=== PATIENT | female | born 1965 | race American Indian/Alaskan Native ===

== ENCOUNTER 2016-08-12 06:34 | Day surgery (SDC) | payer OTHER ==
[2015-08-23 10:50] VITALS: BMI 51.5
--- NOTE | 2016-08-12 08:52 | CP.SDSHP ---
Same Day Surgery H & P - History Proposed Procedure: colonoscopy Pre-Op Diagnosis: Screening for colon cancer - Previous Medical/Surgical History Cardiac: Hypertension, Other (Cardiomyopathy, DELGADO, ) Pulmonary: Asthma Endocrine/Metabolic: Thyroid Disease, Diabetes, Obesity Misc: Other (SLE, Anxiety/Depression, ) Previous Surgical History: Lap Merari. T and A. Tubal ligation. L breast biopsy - Allergies Allergies: Allergies acetaminophen [From Percocet] Allergy (Verified 08/12/16 07:22) SHORTNESS OF BREATH clarithromycin [From Biaxin] Allergy (Verified 08/12/16 07:22) RASH oxycodone HCl [From Percocet] Allergy (Verified 08/12/16 07:22) SHORTNESS OF BREATH - Physical Exam Vital Signs: Vital Signs 08/12/16 06:50 Temperature 97 F L Pulse Rate 79 Respiratory 19 Rate Blood Pressure 134/64 O2 Sat by Pulse 97 Oximetry Mental Status: Alert & Oriented x3 Neuro: WNL Heart: WNL Lungs: WNL GI: WNL (morbidly obese) - {Optional Preform as Required} Other Pertinent Findings: Patient only stopped ASA three days prior to procedure. - Impression Impression: Screening for colon neoplasia Pt. Evaluated Today:Candidate for Anesthesia & Procedure: Yes - Date & Time Date: 08/12/16 Time: 08:54 Short Stay Discharge - Short Stay Discharge Admitting Diagnosis/Reason for Visit: ENCOUNTER FOR SCREENING FOR MALIGNANT NEOPLASM OF Disposition: HOME/ ROUTINE
[2016-08-12] MEDS ORDERED: Lactated Ringer's 500 ML IV ONE ×2 (08:55)
[2016-08-12] MEDS ORDERED: Propofol 10 mg/ml Inj (20 ML) ONE ×2 (08:58→09:07)
[2016-08-12 10:11] VITALS: O2SAT 99
[2016-08-12 10:33] VITALS: BP 129/69; PULSE 81; RESP 22; TEMP 97.8
== END 2016-08-12 10:30 | disposition home or self-care (01) ==
LOC: C.ENDO 06:34
PROVIDERS: ATTEND Internal Medicine Gastroenterology
DX: K64.8 Other hemorrhoids (principal); R10.11 Right upper quadrant pain
CPT/HCPCS: 45378; 82948; J2704; J7120